=== PATIENT | female | born 1965 | race Caucasian/White ===

== ENCOUNTER → 2017-11-30 | Day surgery (SDC) | payer BC | LOC: MSO 07:17 | DX: Z12.11 Encounter for screening for malignant neoplasm of colon (principal) | CPT/HCPCS: 00812; J2704; J7120 ==

== ENCOUNTER 2018-12-18 11:35 | Emergency (ER) | payer BC ==
[~2018-12-18] VITALS: Ht 162.6 cm; Wt 79.5 kg
[2018-12-18] MEDS ORDERED: FLUOXETINE HCL10 MG PO (11:43)
[2018-12-18] MEDS ORDERED: ESTRACE 1MG1 MG/TAB PO (11:43)
[2018-12-18 12:28] VITALS: BP 149/81
== END 2018-12-18 12:28 | disposition home or self-care (01) ==
LOC: ED 11:35
DX: S61.216A Laceration without foreign body of right little finger without damage to nail, initial encounter (principal); Z87.442 Personal history of urinary calculi; Z90.710 Acquired absence of both cervix and uterus; W26.0XXA Contact with knife, initial encounter; Y92.009 Unspecified place in unspecified non-institutional (private) residence as the place of occurrence of the external cause

== ENCOUNTER → 2021-04-10 | Outpatient (CLI) | payer BC ==
[~2021-04-10] MED LIST: ESTRACE 1MG1 MG/TAB PO; FLUOXETINE HCL10 MG PO
== END ==
LOC: RAD 11:03
DX: K76.0 Fatty (change of) liver, not elsewhere classified (principal); N28.1 Cyst of kidney, acquired; K80.20 Calculus of gallbladder without cholecystitis without obstruction; N21.0 Calculus in bladder; Z87.442 Personal history of urinary calculi; Z90.710 Acquired absence of both cervix and uterus

== ENCOUNTER 2022-05-15 14:00 | Outpatient (RCR) | payer BC | END 2022-05-22 | disposition home or self-care (01) | LOC: PT | DX: M54.9 Dorsalgia, unspecified (principal) ==

== ENCOUNTER 2022-05-28 16:00 | Outpatient (RCR) | payer BC | END 2022-06-22 | disposition home or self-care (01) | LOC: PT | DX: M54.9 Dorsalgia, unspecified (principal) ==

== ENCOUNTER 2022-06-23 07:58 | Outpatient (RCR) | payer BC | END 2022-07-23 | disposition home or self-care (01) | LOC: PT | DX: M54.9 Dorsalgia, unspecified (principal) ==

== ENCOUNTER → 2024-12-16 | Outpatient (CLI) | payer BC | LOC: RAD 12:13 | DX: R05.1 Acute cough (principal) ==

== ENCOUNTER → 2024-12-28 | Outpatient (CLI) | payer BC | LOC: RAD 09:13 | DX: N20.0 Calculus of kidney (principal); K80.20 Calculus of gallbladder without cholecystitis without obstruction ==

== ENCOUNTER → 2025-01-02 | Outpatient (CLI) | payer BC | LOC: LAB 11:54 | DX: R93.421 Abnormal radiologic findings on diagnostic imaging of right kidney (principal) ==

== ENCOUNTER → 2025-01-03 | Outpatient (CLI) | payer BC ==
[~2025-01-03] MED LIST changes: +Iohexol 300 - 100 ML VIAL IV ONE; +NS 100 ML IV SCH
== END ==
LOC: RAD 10:00
DX: N28.89 Other specified disorders of kidney and ureter (principal); E27.8 Other specified disorders of adrenal gland
CPT/HCPCS: Q9967